=== PATIENT | male | born 1960 | race Caucasian/White ===

== ENCOUNTER 2018-07-22 13:01 | Emergency (ER) | payer BC, OTHER, SELFPAY ==
[2018-07-22 13:06] VITALS: BP 196/97; PULSE 77; RESP 20; TEMP 36.5; O2SAT 97
--- NOTE | 2018-07-22 13:11 | DI.RAD.S_ITS ---
PROCEDURE: XR CHEST 2V INDICATIONS: cough/soa/orthopnea TECHNIQUE: 2 views of the chest were acquired. COMPARISON: None. FINDINGS: Surgical changes and devices: None. Lungs and pleura: Lungs are clear. No pleural effusions or pneumothorax. Mediastinum: Mediastinal contours are normal. Heart size is normal. Bones and chest wall: No suspicious bony abnormalities. Soft tissues appear unremarkable. IMPRESSION: No acute cardiopulmonary findings. Dictated by: Helne Nicholas M.D. on 07/22/2018 at 13:22 Approved by: Helen Nicholas M.D. on 07/22/2018 at 13:45
[2018-07-22 13:35] LABS: Influenza A and B by PCR Rapid Negative (Negative)
[2018-07-22 14:23] VITALS: BP 183/90; PULSE 74; RESP 16; O2SAT 99
--- NOTE | 2018-07-22 15:00 | ED_ITS ---
HPI - URI/Sore Throat <Maria Ghosh PA-C - Last Filed: 07/22/18 21:36> General Chief Complaint: Upper Respiratory Symptoms Stated Complaint: lung congestion, wheezing and coughing Time Seen by Provider: 07/22/18 14:27 Source: patient Mode of arrival: ambulatory Limitations: no limitations History of Present Illness HPI Narrative: This 58-year-old male comes in due to worsening cough and chest congestion with some wheezing at night. He states this has worsened for the last couple of days with productive cough though he has had cough for about a month now. He states that he does not feel acutely short of breath though notices his exercise tolerance is a little less any tends to cough when he exerts himself , thinks this might be because he is throwing hay for the horses in the barn and there is dust. He denies any fever, chills, or sweats at home. He states that he can have a little ear congestion but otherwise no new sinus symptoms, no sore throat or nasal congestion. He denies any pulmonary history or history of reactive airways. He denies any new swelling or pain in his extremities. No recent travel or known exposures. he states only other new symptoms that started the last couple of days is a rash on his right ankle area that is very itchy. He states he had this once about 8 years ago and was treated with steroids. Related Data Previous Rx's Medication Instructions Recorded albuterol sulfate 2 inhalation INHALATION Q4H PRN 07/22/18 #8.5 gram triamcinolone acetonide 1 applictn TOP BID #60 gram 07/22/18 Allergies Allergy/AdvReac Type Severity Reaction Status Date / Time No Known Drug Allergies Allergy Verified 07/22/18 13:09 Review of Systems <Maria Ghosh PA-C - Last Filed: 07/22/18 21:36> Review of Systems ROS Unobtainable: All systems reviewed & are unremarkable except as noted in HPI and below PFSH <Maria Ghosh PA-C - Last Filed: 07/22/18 21:36> Medical History Elevated blood pressure reading in office without diagnosis of hypertension (Chronic) Not taking medication for chronic disease (Chronic) Surgical History Status post discectomy for herniated nucleus pulposus (Resolved) Status post rotator cuff repair (Resolved) Family History Other No pertinent family history Social History Smoking Status: Former smoker Family History Other No pertinent family history Social History Smoking Status: Former smoker Comment: approx 25 py tob, quit 2009 Exam <Maria Ghosh PA-C - Last Filed: 07/22/18 21:36> Narrative Exam Narrative: GENERAL APPEARANCE: Patient sitting comfortably, in no distress. HEAD: No sinus TTP. EYES: PERRL, EOMI. EARS: Normal auditory canals, TMS intact with dull light reflexes ORAL CAVITY: Normal oropharynx. THROAT: Clear. NECK/THYROID: Neck supple, full range of motion, no cervical lymphadenopathy. LUNGS: breath sounds are a little coarse without wheezes or crackles, occasional hoarse cough on exam HEART: RRR without murmur, nl S1, S2, no S3 or S4. EXTREMITIES: no edema or calf tenderness DERMATOLOGIC: Right lower extremity there is patchy irregular erythema with skin flaking, noted over the inferior sparrow to ankle, sparing the mid to distal foot Initial Vital Signs Initial Vital Signs: Vital Signs Temperature 97.7 F 07/22/18 13:06 Pulse Rate 77 07/22/18 13:06 Respiratory Rate 20 07/22/18 13:06 Blood Pressure 196/97 H 07/22/18 13:06 Pulse Oximetry 97 07/22/18 13:06 <Mily Frazier DO - Last Filed: 07/23/18 12:30> Initial Vital Signs Initial Vital Signs: Vital Signs Temperature 97.7 F 07/22/18 13:06 Pulse Rate 77 07/22/18 13:06 Respiratory Rate 20 07/22/18 13:06 Blood Pressure 196/97 H 07/22/18 13:06 Pulse Oximetry 97 07/22/18 13:06 Course <Maria Ghosh PA-C - Last Filed: 07/22/18 21:36> Additional Information: Patient is feeling significantly improved after nebulizer treatment. He is coughing less. He has had ongoing cough and may have some element of COPD or ongoing allergy related cough, but likely viral bronchitis and reactive airways with recent worsening cough. He will continue albuterol at home along with other supportive treatment. He agreed to return if any acutely worsening symptoms, and otherwise I have arranged follow-up with a new PCP for him next week Orders Ordered: Discontinued Medications Albuterol (Ventolin) 2.5 mg INH NOW ONE Stop: 07/22/18 15:10 Last Admin: 07/22/18 15:21 Dose: 2.5 mg Vital Signs - 8 hr 07/22/18 14:23 07/22/18 15:24 07/22/18 15:50 Pulse Rate 74 63 67 Respiratory Rate 16 16 16 Blood Pressure [Left Arm] 183/90 H 140/73 Pulse Oximetry 99 97 100 <Mily Frazier DO - Last Filed: 07/23/18 12:30> Orders Ordered: Discontinued Medications Albuterol (Ventolin) 2.5 mg INH NOW ONE Stop: 07/22/18 15:10 Last Admin: 07/22/18 15:21 Dose: 2.5 mg Vital Signs - 8 hr 07/22/18 14:23 07/22/18 15:24 07/22/18 15:50 Pulse Rate 74 63 67 Respiratory Rate 16 16 16 Blood Pressure [Left Arm] 183/90 H 140/73 Pulse Oximetry 99 97 100 MDM - URI/Sore Throat <Maria Ghosh PA-C - Last Filed: 07/22/18 21:36> Lab Data Lab Results 07/22/18 Range/Units 13:10 Influenza A & B (PCR) Negative (Negative) Imaging Data Chest x-ray: Radiologist's impression: Garret Soriano 58 M [address] [address] XRay Report Signed Patient: Garret SorianoMR#: [id number] : 9Acct:[id number] Age/Sex: 58 / MDate of Service: 07/22/18 Loc: ED Accession Number: [id number] Procedure: XR chest 2V Ordering Provider: Maria Ghosh P.A-C PROCEDURE: XR CHEST 2V INDICATIONS: cough/soa/orthopnea TECHNIQUE: 2 views of the chest were acquired. COMPARISON: None. FINDINGS: Surgical changes and devices: None. Lungs and pleura: Lungs are clear. No pleural effusions or pneumothorax. Mediastinum: Mediastinal contours are normal. Heart size is normal. Bones and chest wall: No suspicious bony abnormalities. Soft tissues appear unremarkable. IMPRESSION: No acute cardiopulmonary findings. Dictated by: Helen Nicholas M.D. on 07/22/2018 at 13:22 Approved by: Helen Nicholas M.D. on 07/22/2018 at 13:45 <Mily DO Freddie - Last Filed: 07/23/18 12:30> Lab Data Lab Results 07/22/18 Range/Units 13:10 Influenza A & B (PCR) Negative (Negative) Discharge Plan Departure Patient Disposition: Home Clinical Impression: Bronchitis, Dermatitis Reactive airway disease Qualifiers: Asthma severity: mild Asthma persistence: intermittent Asthma complication type: with acute exacerbation Qualified Code(s): J45.21 - Mild intermittent asthma with (acute) exacerbation Discharge Date/Time: 07/22/18 16:12 Interventions: ED Discharge Assessment Last Done: 07/22/18 16:11 Instructions: DI for Acute Bronchitis, DI for Reactive Airway Disease-Adult Activity Restrictions/Additional Instructions: please use the inhaler as often as needed to help with cough and wheeze. you seem to have what we call reactive airways, which is an asthma like reaction when there is a trigger such as bronchitis. You may wish to add [id number] Mucinex to help with the chest congestion, and an antihistamine such as Zyrtec once daily may be helpful as well Since you are exposed to lots of allergens. Please return as we talked about if you have any acutely worsening symptoms, i.e. worsening wheezing or breathing difficulties, or new symptoms such as high fever. you should follow-up with a primary care provider in the next week or so to make sure you are getting better and see whether you need any other testing or treatment for your cough. I have also prescribed a topical steroid for your rash that has showed up again on your right leg. Please start using that and continue the athletes foot powder in your socks/boots as well. Leave the rash open to air when you are home. I have set you up with [facility] here in [facility] for a new patient appointment on Sunday, 07/30 so that you can follow up on these problems. Please check in there at 10:00 a.m. a.m. so that you can fill out paperwork prior to your appointment Prescriptions: New triamcinolone acetonide 0.5 % ointment 1 applictn TOP BID Qty: 60 RF: 0 albuterol sulfate 90 mcg/actuation HFA aerosol inhaler 2 inhalation INHALATION Q4H PRN (Reason: cough/wheeze) Qty: 8.5 RF: 0 Referrals: Tang Travis MD [Physician] - <Mily Frazier DO - Last Filed: 07/23/18 12:30> Cosign ED Attending Cosignature Attestation: I was immediately available in the department for consultation. Documentation has been reviewed. I agree with assessment and plan.
[2018-07-22] MEDS: ALBUTEROL 2.5 MG/3 ML NEB (ADULT) INH (15:21)
[2018-07-22 15:24] VITALS: PULSE 63; RESP 16; O2SAT 97
[2018-07-22 15:50] VITALS: BP 140/73; PULSE 67; RESP 16; O2SAT 100
== END 2018-07-22 16:12 | disposition home or self-care (01) ==
PROVIDERS: Emergency Provider Internal Medicine
DX: J45.21 Mild intermittent asthma with (acute) exacerbation (principal)
CPT/HCPCS: 71046; 87400; 94640; 99282; 99284; J7613

== ENCOUNTER → 2018-08-14 15:21 | Outpatient (CLI) | payer BC, OTHER, SELFPAY ==
--- NOTE | 2018-08-14 | DI.CT.S_ITS ---
PROCEDURE: CT CHEST WO CON INDICATIONS: CHRONIC COUGH TECHNIQUE: Noncontrast 5 mm thick sections acquired from the pulmonary apices to the posterior costophrenic angles. 7 mm thick coronal and sagittal MIP reformats were then acquired. For radiation dose reduction, the following was used: automated exposure control, adjustment of mA and/or kV according to patient size. COMPARISON: [facility], CR, XR CHEST 2V, 07/22/2018, 13:12. FINDINGS: Image quality: Excellent. Lungs and pleura: There is a 4 mm nodular density in the right middle lobe medially (series 3 image 30; series 4 image 15 and series 5 image 27). Mild right basilar scar/atelectasis. No acute air space opacities. No pleural effusions or pneumothorax. Central and peripheral airways are patent and normal in caliber. Mediastinum: Heart size is normal. No pericardial effusion. No mediastinal adenopathy by size criteria. Thoracic aorta and central pulmonary arteries are normal in size. Esophagus is normal in caliber. No hiatal hernia. Bones and chest wall: No suspicious bony lesions. No vertebral body compression fractures. No axillary or supraclavicular adenopathy by size criteria. Thyroid gland is normal. Abdomen: Visualized upper abdominal solid organs and bowel loops appear normal in the absence of contrast. IMPRESSION: 1. A 4 mm nodular density in the right middle lobe. Please see enclosed followup recommendation. 2. Mild right basilar scar/atelectasis. Fleischner Society criteria for SOLID lung nodule followup. Nodule size (mm)Low-risk patientHigh-risk patient?4No follow-up neededFollow-up at 12 mo; if no change, no further follow-up>[id number] CT at 12 mo; if no change, no further follow-up needed.Initial follow-up CT at 6-12 mo, then 18-24 mo if no change. >6-8Initial follow-up CT at 6-12 mo, then 18-24 mo if no change. Initial follow-up CT at 3-6 mo, then 9-12 mo and 24 mo if no change. >8Follow-up CT at 3, 9, 24 mo. Or PET and/or biopsy.Same as for low-risk pts. Dictated by: Chrissie Burnham M.D. on 08/14/2018 at 16:16 Approved by: Chrissie Burnham M.D. on 08/14/2018 at 17:31
[2018-08-14 16:42] LABS: Alanine Aminotransferase 37 IU/L (21-72); Albumin 4.8 g/dL (3.5-5.0); Albumin Globulin Ratio 1.5 (1.0-2.8); Alkaline Phosphatase 69 U/L (38-126); Aspartate Aminotransferase 35 IU/L (17-59); BUN Creatinine Ratio 15.6 (6-22); Bilirubin Total 0.5 mg/dL (0.2-1.3); Blood Urea Nitrogen 14 mg/dL (9-20); Calcium 9.5 mg/dL (8.4-10.2); Carbon Dioxide 27 mmol/L (22-32); Chloride 102 mmol/L (98-107); Cholesterol 244 mg/dL (140-199); Estimated Glomerular Filt Rate > 60.0 mL/min (>60); Globulin 3.3 g/dL (1.7-4.1); Glucose 140 mg/dL (70-100); HDL Cholesterol 41 mg/dL (40-60); HEMOLYSIS < 15 (0-50); LDL Cholesterol Calculated 151 mg/dL (<100); Sodium 141 mmol/L (137-145); Total Protein 8.1 g/dL (6.3-8.2); Triglycerides 261 mg/dL (35-150)
== END ==
PROVIDERS: PCP Internal Medicine; Visit Provider Internal Medicine
DX: R05 Cough (principal); R91.1 Solitary pulmonary nodule; J98.11 Atelectasis; I10 Essential (primary) hypertension; E78.5 Hyperlipidemia, unspecified
CPT/HCPCS: 36415; 71250; 80053; 80061

== ENCOUNTER → 2018-10-02 16:21 | Outpatient (CLI) | payer BC, OTHER, SELFPAY ==
[2018-10-02 17:19] LABS: Hemoglobin A1C% w Est Avg Glu 5.5 % (4.0-6.0)
--- NOTE | 2018-10-08 15:15 | PM.PFT.1 ---
Pulmonary Function Test Referral & Results Date Patient Seen: 10/02/18 Requesting provider: Tang Travis Results: The spirometry demonstrates an FVC of 3.42 L which is 82% of predicted. The FEV1 was measured at 2.51 L which is 81% of predicted. The FEV1/FVC ratio was 70 for which is 97% of predicted. Following the administration of bronchodilator there was at 32% improvement in FEF 25-75%. Lung volumes show an SVC of 3.69 L which is 88% of predicted. The diffusing capacity was measured at 26.75 which is 99% of predicted. The maximum voluntary ventilation was normal Interpretation: This study demonstrates perhaps very mild obstructive lung disease based on slight reduction in FEV1. There was a 32% improvement in small airway flow based on improvement in FEF 25-75% following bronchodilator administration There is minimal reduction in lung volumes suggesting perhaps very mild restrictive lung disease Clinical correlation suggested
== END ==
PROVIDERS: PCP Internal Medicine; Visit Provider Internal Medicine
DX: R05 Cough (principal); R06.02 Shortness of breath; R73.9 Hyperglycemia, unspecified
CPT/HCPCS: 36415; 83036; 94060; 94726; 94729

== ENCOUNTER → 2018-11-30 11:27 | Outpatient (CLI) | payer BC, OTHER, SELFPAY ==
[2018-11-30 13:17] LABS: Alanine Aminotransferase 25 IU/L (21-72); Albumin 4.3 g/dL (3.5-5.0); Albumin Globulin Ratio 1.4 (1.0-2.8); Alkaline Phosphatase 70 U/L (38-126); Aspartate Aminotransferase 31 IU/L (17-59); BUN Creatinine Ratio 12.2 (6-22); Bilirubin Total 0.4 mg/dL (0.2-1.3); Blood Urea Nitrogen 11 mg/dL (9-20); Carbon Dioxide 27 mmol/L (22-32); Chloride 107 mmol/L (98-107); Cholesterol 207 mg/dL (140-199); Estimated Glomerular Filt Rate > 60.0 mL/min (>60); Globulin 3.1 g/dL (1.7-4.1); Glucose 105 mg/dL (70-100); HDL Cholesterol 35 mg/dL (40-60); HEMOLYSIS < 15 (0-50); LDL Cholesterol Calculated 126 mg/dL (<100); Potassium 4.1 mmol/L (3.4-5.1); Sodium 141 mmol/L (137-145); Total Protein 7.4 g/dL (6.3-8.2); Triglycerides 231 mg/dL (35-150)
[2018-11-30 13:18] LABS: Hemoglobin A1C% w Est Avg Glu 5.3 % (4.0-6.0)
== END ==
PROVIDERS: PCP Internal Medicine; Visit Provider Internal Medicine
DX: I10 Essential (primary) hypertension (principal); E78.5 Hyperlipidemia, unspecified; R73.9 Hyperglycemia, unspecified
CPT/HCPCS: 36415; 80053; 80061; 83036

== ENCOUNTER → 2019-02-24 15:21 | Outpatient (CLI) | payer BC, OTHER, SELFPAY ==
--- NOTE | 2019-02-24 | DI.CT.S_ITS ---
PROCEDURE: CT CHEST WO CON INDICATIONS: LUNG NODULE TECHNIQUE: Noncontrast 2.0-2.5 mm thick sections acquired from the pulmonary apices to the posterior costophrenic angles. 7 mm thick axial MIP and 5 mm coronal and sagittal reformats were then acquired. A low radiation dose technique was utilized. COMPARISON: [facility], CT, CT CHEST WO CON, 08/14/2018, 15:44. FINDINGS: Image quality: Diagnostic, given the low radiation dose technique. Lungs and pleura: There is a stable, triangular shaped pulmonary radiopacity which extends to the medial right middle lobe pleural surface (series 6, image 22 and series 5, image 21. This finding is unchanged when compared with the prior CT dated 08/14/18 when accounting for variation in slice thickness. No new pulmonary nodules. No acute air space opacities. No pleural effusion or pneumothorax. Mediastinum: Heart size is normal. No pericardial effusion. No mediastinal adenopathy by size criteria. Thoracic aorta and central pulmonary arteries are normal in size. Esophagus is normal in caliber. No hiatal hernia. Bones and chest wall: No suspicious bony lesions. No vertebral body compression fractures. No axillary or supraclavicular adenopathy by size criteria. Thyroid gland is unremarkable. Abdomen: Visualized upper abdomen solid organs and bowel loops appear normal in the absence of contrast. IMPRESSION: 1. Stable appearance of a triangular shaped, pleural-based pulmonary radiopacity within the right middle lobe when compared with the CT dated 08/14/18. Followup CT in 6-12 months recommended to ensure stability. 2. No new pulmonary nodules or acute air space opacities. Fleischner Society criteria for SOLID lung nodule followup. Nodule size (mm)Low-risk patientHigh-risk patient<6 (single or multiple)No routine followup.Optional CT at 12 months. 6-8 (single or multiple)CT at 6-12 months, then optional CT at 18-24 mo.CT at 6-12 months, then CT at 18-24 months. >8 (single)CT at 3 months, PET-CT, or biopsy. Same as for low-risk pts. >8 (multiple)CT at 3-6 months, then optional CT at 18-24 mo.CT at 3-6 months, then CT at 18-24 months. Fleischner Society criteria for SUB-SOLID lung nodule followup. Solitary pure ground-glass nodules<6 mm (ground glass or part solid)No followup needed. 6 mm or larger (ground glass)CT at 6-12 months to confirm persistence, then CT every 2 years until 5 years.6 mm or larger (part solid)CT at 3-6 months to confirm persistence, then annual CT until 5 years if unchanged and solid component remains <6 mm. Multiple sub-solid nodules<6 mmCT at 3-6 months, then CT consider at 2 & 4 years for high risk patients. [address] at 3-6 months. Subsequent management based on most suspicious lesions. Recommendations do not apply to lung cancer screening, patients with immunosuppression, or patients with known primary cancer. Dictated by: Helen Nicholas M.D. on 02/24/2019 at 17:09 Approved by: Helen Nicholas M.D. on 02/24/2019 at 17:15
== END ==
PROVIDERS: PCP Internal Medicine; Visit Provider Internal Medicine
DX: R91.1 Solitary pulmonary nodule (principal)
CPT/HCPCS: 71250

== ENCOUNTER → 2019-07-14 15:26 | Outpatient (CLI) | payer BC, OTHER, SELFPAY ==
[2019-07-14 18:12] LABS: Alanine Aminotransferase 22 IU/L (<50); Albumin 4.7 g/dL (3.5-5.0); Albumin Globulin Ratio 1.5 (1.0-2.8); Alkaline Phosphatase 72 U/L (38-126); Aspartate Aminotransferase 31 IU/L (17-59); BUN Creatinine Ratio 16.7 (6-22); Bilirubin Total 0.3 mg/dL (0.2-1.3); Blood Urea Nitrogen 15 mg/dL (9-20); Calcium 10.1 mg/dL (8.4-10.2); Carbon Dioxide 28 mmol/L (22-32); Chloride 103 mmol/L (98-107); Estimated Glomerular Filt Rate > 60.0 mL/min (>60); Globulin 3.2 g/dL (1.7-4.1); Glucose 84 mg/dL (80-110); HDL Cholesterol 37 mg/dL (40-60); HEMOLYSIS < 15 (0-50); Potassium 4.7 mmol/L (3.4-5.1); Sodium 141 mmol/L (137-145); Total Protein 7.9 g/dL (6.3-8.2); Triglycerides 347 mg/dL (35-150)
[2019-07-14 18:13] LABS: Cholesterol 255 mg/dL (140-199); LDL Cholesterol Calculated 149 mg/dL (<100)
--- NOTE | 2019-08-12 11:35 | ONC.MSW ---
Description: Initial Referral Navigation Activity: Reviewed the referral for acuity, medical status and immediate needs. Forwarded to scheduling for next available initial consult visit.
== END ==
PROVIDERS: PCP Internal Medicine; Referring Provider Internal Medicine; Visit Provider Internal Medicine
DX: I10 Essential (primary) hypertension (principal); E78.5 Hyperlipidemia, unspecified
CPT/HCPCS: 36415; 80053; 80061

== ENCOUNTER → 2019-10-06 13:00 | Oncology outpatient (ONC) | payer BC, OTHER, SELFPAY ==
[2019-09-04 14:52] VITALS: BP 146/85; PULSE 66; RESP 18; TEMP 36.8; O2SAT 98
--- NOTE | 2019-09-04 15:06 | P.CONONC_ITS ---
History of Present Illness - Data of Consult Patient: new to practice Consult date: 09/04/19 Requesting Physician: Tang Travis MD Primary Care Provider: Tang Travis MD - Consult Narrative Reason for consult: Positive family history of Factor V Leiden Narrative: Garret Soriano is a 59 year old male. He was referred here for test of factor V Leiden due to strong family history. His sister and mother were diagnosed FVL. His sister maybe has history of DVT. His mother had stroke. His father negative for FVL. Patient himself has no symptoms. His medical comorbidities include high blood pressure. He has ruptured disk and had sciatic nerve. He had surgery of his back and since then, he has numbness of left foot, heal and 4/5 toes. Patient reports pain?: No Home Medications and Allergies Home Medications Medication Instructions Recorded Confirmed Type albuterol sulfate 2 inhalation INHALATION Q4H PRN 07/22/18 09/04/19 Rx #8.5 gram lisinopril 10 mg PO DAILY 09/04/19 09/04/19 History Allergies Allergy/AdvReac Type Severity Reaction Status Date / Time No Known Drug Allergies Allergy Verified 07/22/18 13:09 Medical History - Medical, Surgical, Family History Medical History: Medical History (Last Updated 07/22/18 @ 21:30 by Maria Ghosh PA-C) Elevated blood pressure reading in office without diagnosis of hypertension Not taking medication for chronic disease Surgical History: Surgical History (Last Updated 07/22/18 @ 15:13 by Maria Ghosh PA-C) Status post discectomy for herniated nucleus pulposus Status post rotator cuff repair Family History: Family History (Last Updated 09/04/19 @ 15:19 by Neto Mcintosh MD) Mother Factor V Leiden Sister Factor V Leiden Father Hypertension Congestive heart failure Lung cancer - Social History Smoking Status: Former smoker Smoking packs per day: 0.5 Years smoked: 20 Substance Use Type: does not use Alcohol Intake: never Exam Vital signs: Last Vital Signs Temp 98.3 F 09/04/19 14:52 Pulse 66 09/04/19 14:52 Resp 18 09/04/19 14:52 BP 146/85 H 09/04/19 14:52 Pulse Ox 98 09/04/19 14:52 Narrative: ECOG 0 Vitals above reviewed Constitutional: WDWN, well nourished, and well groomed. NAD. Pleasant and coop erative. HEENT: NCAT, EOMI, PERRLA, anicteric sclera. Neck: Supple and symmetrical. No palpable thyromegaly or lymphadenopathy. No palpable masses. Respiratory: No use of accessory muscles, CTAB, no wheezes. Cardiovascular: RRR, S1 and S2 normal, no M/G/R. No edema of lower extremities. Abdomen: Soft, NTND, no palpable hepatosplenomegaly, no hernia. Lymphatic: no palpable palpable lymph nodes in the neck, axillae, or groins. Musculoskeletal: normal gait and station Skin: no rashes, lesions, or ulcers, no induration, or sub cutaneous nodules. Neurological: AOx3, CN II-XII grossly intact. No focal motor or sensory deficit. Psychiatric: Normal judgment and insight, normal memory (recent and remote), normal mood and affect. Results - Labs None for review today Assessment and Plan (1) Family history of factor V Leiden mutation Overview: 59-year-old gentleman was referred here due to family history of Factor 5 Leiden (sister and mother). Assessment: I explained to the patient that most likely he probably will be positive. However he does not have any clinical history of venous thromboembolism. So it may or may not change what we are going to do. Patient voiced understanding. Plan: CBC, CMP, Factor V Leiden RTC in 4 weeks
[2019-09-04 16:27] LABS: Add Manual Diff / Slide Review NO; Basophils Absolute Auto 0 /uL (0-100); Basophils Percent Auto 0.7 % (0-2); Eosinophils Absolute Auto 200 /uL (0-450); Eosinophils Percent Auto 2.4 % (2-4); Hematocrit 43.9 % (41-53); Lymphocytes Absolute Auto 2300 /uL (1100-4500); Lymphocytes Percent Auto 34.3 % (25-40); Mean Corpuscular HGB Conc 34.2 % (30-36); Mean Corpuscular Volume 93.6 fL (80-100); Monocytes Absolute Auto 500 /uL (0-900); Monocytes Percent Auto 7.4 % (3-14); Neutrophils Absolute Auto 3700 /uL (1500-7000); Neutrophils Percent Auto 55.2 % (50-75); Platelet Count 260 X10^3/uL (150-400); Red Blood Cell Count 4.69 X10^6/uL (4.5-5.9); Red Cell Distribution Width 12.5 % (11.6-14.8); White Blood Cell Count 6.7 X10^3/uL (4.5-11.0)
[2019-09-04 16:41] LABS: Alanine Aminotransferase 31 IU/L (<50); Albumin 4.7 g/dL (3.5-5.0); Albumin Globulin Ratio 1.4 (1.0-2.8); Alkaline Phosphatase 73 U/L (38-126); Aspartate Aminotransferase 46 IU/L (17-59); BUN Creatinine Ratio 12.8 (6-22); Bilirubin Total 0.6 mg/dL (0.2-1.3); Blood Urea Nitrogen 11 mg/dL (9-20); Calcium 9.6 mg/dL (8.4-10.2); Carbon Dioxide 29 mmol/L (22-32); Chloride 102 mmol/L (98-107); Estimated Glomerular Filt Rate > 60.0 mL/min (>60); Globulin 3.4 g/dL (1.7-4.1); Glucose 101 mg/dL (80-110); HEMOLYSIS < 15 (0-50); Potassium 4.2 mmol/L (3.4-5.1); Sodium 138 mmol/L (137-145); Total Protein 8.1 g/dL (6.3-8.2)
--- NOTE | 2019-10-06 12:43 | ONC.PN ---
PN -Subjective Interval history: Garret Soriano is a 59 year old male. He was referred here for test of factor V Leiden due to strong family history. His sister and mother were diagnosed FVL. His sister maybe has history of DVT. His mother had stroke. His father negative for FVL. Patient himself has no symptoms. His medical comorbidities include high blood pressure. He has ruptured disk and had sciatic nerve. He had surgery of his back and since then, he has numbness of left foot, heal and 4/5 toes. Patient presents here today for follow-up of the lab test results. Clinically patient reports no new signs or symptoms. - Additional ROS All systems PM: reviewed and no additional remarkable complaints except as stated Home Medications and Allergies Home Medications Medication Instructions Recorded Confirmed Type albuterol sulfate 2 inhalation INHALATION Q4H PRN 07/22/18 09/04/19 Rx #8.5 gram lisinopril 10 mg PO DAILY 09/04/19 09/04/19 History aspirin [Aspirin Low Dose] 81 mg PO DAILY 10/06/19 10/06/19 History Allergies Allergy/AdvReac Type Severity Reaction Status Date / Time No Known Drug Allergies Allergy Verified 07/22/18 13:09 Exam Vital signs: 10/06/19 13:07 Last Vital Signs Temp 98.3 F 09/04/19 14:52 Pulse 60 10/06/19 12:58 Resp 16 10/06/19 12:58 BP 145/86 H 10/06/19 12:58 Pulse Ox 99 10/06/19 12:58 Narrative: ECOG 0 Vitals above reviewed Constitutional: WDWN, well nourished, and well groomed. NAD. Pleasant and cooperative. HEENT: NCAT, EOMI, PERRLA, anicteric sclera. Respiratory: No use of accessory muscles Musculoskeletal: normal gait and station Neurological: AOx3, CN II-XII grossly intact. No focal motor or sensory deficit. Psychiatric: Normal judgment and insight, normal memory (recent and remote), normal mood and affect. Results - Labs Laboratory Last Values WBC 6.7 X10^3/uL (4.5-11.0) 09/04/19 16:14 RBC 4.69 X10^6/uL (4.5-5.9) 09/04/19 16:14 Hgb 15.0 g/dL (13.5-17.5) 09/04/19 16:14 Hct 43.9 % (41-53) 09/04/19 16:14 MCV 93.6 fL (80-100) 09/04/19 16:14 MCH 32.0 PG (26-34) 09/04/19 16:14 MCHC 34.2 % (30-36) 09/04/19 16:14 RDW 12.5 % (11.6-14.8) 09/04/19 16:14 Plt Count 260 X10^3/uL (150-400) 09/04/19 16:14 Neut % (Auto) 55.2 % (50-75) 09/04/19 16:14 Lymph % (Auto) 34.3 % (25-40) 09/04/19 16:14 [place] % (Auto) 7.4 % (3-14) 09/04/19 16:14 Eos % (Auto) 2.4 % (2-4) 09/04/19 16:14 Baso % (Auto) 0.7 % (0-2) 09/04/19 16:14 Neut # (Auto) 3700 /uL (8707-0144) 09/04/19 16:14 Lymph # (Auto) 2300 /uL (9538-7673) 09/04/19 16:14 [place] # (Auto) 500 /uL (0-900) 09/04/19 16:14 Eos # (Auto) 200 /uL (0-450) 09/04/19 16:14 Baso # (Auto) 0 /uL (0-100) 09/04/19 16:14 Factor V Leiden Interp Comment (.) 09/04/19 16:14 Sodium 138 mmol/L (137-145) 09/04/19 16:14 Potassium 4.2 mmol/L (3.4-5.1) 09/04/19 16:14 Chloride 102 mmol/L (98-107) 09/04/19 16:14 Carbon Dioxide 29 mmol/L (22-32) 09/04/19 16:14 BUN 11 mg/dL (9-20) 09/04/19 16:14 Creatinine 0.86 mg/dL (0.66-1.25) 09/04/19 16:14 Estimated GFR > 60.0 mL/min (>60) 09/04/19 16:14 BUN/Creatinine Ratio 12.8 (6-22) 09/04/19 16:14 Glucose 101 mg/dL (80-110) 09/04/19 16:14 Calcium 9.6 mg/dL (8.4-10.2) 09/04/19 16:14 Total Bilirubin 0.6 mg/dL (0.2-1.3) 09/04/19 16:14 AST 46 IU/L (17-59) 09/04/19 16:14 ALT 31 IU/L (<50) 09/04/19 16:14 Alkaline Phosphatase 73 U/L (38-126) 09/04/19 16:14 Total Protein 8.1 g/dL (6.3-8.2) 09/04/19 16:14 Albumin 4.7 g/dL (3.5-5.0) 09/04/19 16:14 Globulin 3.4 g/dL (1.7-4.1) 09/04/19 16:14 Albumin/Globulin Ratio 1.4 (1.0-2.8) 09/04/19 16:14 Assessment and Plan (1) Family history of factor V Leiden mutation Overview: 59-year-old gentleman was referred here due to family history of Factor 5 Leiden (sister and mother). Assessment: I reviewed the lab results with the patient. CBC and CMP are normal. The genetic testing for Factor 5 Leiden was negative. I talked with him that it means he did not inherit the abnormal gene from his mother. His lab results from previous test only showed hypercholesterolemia. I recommend the patient continue follow-up with his primary care provider Dr. Travis. Patient voiced understanding. I will follow up on an as-needed basis. I Plan: Follow up with his PCP Dr. Travis. Call me for follow up visit prn.
[2019-10-06 12:58] VITALS: BP 145/86; PULSE 60; RESP 16; O2SAT 99
== END ==
PROVIDERS: PCP Internal Medicine; Referring Provider Internal Medicine; Visit Provider Internal Medicine Hematology & Oncology
DX: Z13.0 Encounter for screening for diseases of the blood and blood-forming organs and certain disorders involving the immune mechanism (principal); Z83.2 Family history of diseases of the blood and blood-forming organs and certain disorders involving the immune mechanism; I10 Essential (primary) hypertension; E78.00 Pure hypercholesterolemia, unspecified; Z87.891 Personal history of nicotine dependence
CPT/HCPCS: 36415; 80053; 81241; 85025; 99203; 99213

== ENCOUNTER → 2020-12-24 09:40 | Outpatient (CLI) | payer BC, OTHER, SELFPAY ==
[2020-12-24 10:21] LABS: COVID19 -Nasal RAPID Negative (Negative)
== END ==
PROVIDERS: PCP Internal Medicine; Visit Provider Physician Assistant
DX: R05 Cough (principal); Z20.822 Contact with and (suspected) exposure to COVID-19; R09.81 Nasal congestion
CPT/HCPCS: 87635

== ENCOUNTER → 2021-10-18 15:59 | Outpatient (CLI) | payer BC, OTHER, SELFPAY ==
[2021-10-18 17:25] LABS: Add Manual Diff / Slide Review NO; Basophils Absolute Auto 0 /uL (0-100); Basophils Percent Auto 0.3 % (0-2); Eosinophils Absolute Auto 100 /uL (0-450); Eosinophils Percent Auto 1.5 % (2-4); Hematocrit 39.8 % (41-53); Hemoglobin 13.9 g/dL (13.5-17.5); Lymphocytes Absolute Auto 2300 /uL (1100-4500); Lymphocytes Percent Auto 31.5 % (25-40); Mean Corpuscular HGB Conc 34.9 % (30-36); Mean Corpuscular Hemoglobin 32.1 PG (26-34); Monocytes Absolute Auto 700 /uL (0-900); Monocytes Percent Auto 9.6 % (3-14); Neutrophils Absolute Auto 4100 /uL (1500-7000); Neutrophils Percent Auto 57.1 % (50-75); Platelet Count 240 X10^3/uL (150-400); Red Blood Cell Count 4.32 X10^6/uL (4.5-5.9); Red Cell Distribution Width 12.5 % (11.6-14.8); White Blood Cell Count 7.1 X10^3/uL (4.5-11.0)
[2021-10-18 17:39] LABS: Hemoglobin A1C% w Est Avg Glu 5.6 % (4.0-6.0)
[2021-10-18 17:56] LABS: Alanine Aminotransferase 25 IU/L (<50); Albumin 4.5 g/dL (3.5-5.0); Albumin Globulin Ratio 1.4 (1.0-2.8); Alkaline Phosphatase 74 U/L (38-126); Aspartate Aminotransferase 40 IU/L (17-59); BUN Creatinine Ratio 11.9 (6-22); Bilirubin Total 0.5 mg/dL (0.2-1.3); Blood Urea Nitrogen 10 mg/dL (9-20); Carbon Dioxide 27 mmol/L (22-32); Chloride 105 mmol/L (98-107); Cholesterol 226 mg/dL (140-199); Estimated Glomerular Filt Rate > 60 mL/min (>60); Globulin 3.3 g/dL (1.7-4.1); Glucose 105 mg/dL (80-110); HDL Cholesterol 33 mg/dL (40-60); HEMOLYSIS < 15 (0-50); LDL Cholesterol Calculated 136 mg/dL (<100); Potassium 3.9 mmol/L (3.4-5.1); Sodium 141 mmol/L (137-145); Total Protein 7.8 g/dL (6.3-8.2); Triglycerides 285 mg/dL (35-150)
[2021-10-18 18:25] LABS: Thyroid Stimulating Hormone 1.03 uIU/mL (0.47-4.68)
== END ==
PROVIDERS: PCP Family Medicine; Referring Provider Family Medicine; Visit Provider Family Medicine
DX: Z00.00 Encounter for general adult medical examination without abnormal findings (principal)
CPT/HCPCS: 36415; 80053; 80061; 83036; 84443; 85025

== ENCOUNTER 2024-02-19 14:05 | Day surgery (SDC) | payer OTHER, SELFPAY ==
[2024-02-15 07:06] VITALS: BMI 36.6
--- NOTE | 2024-02-18 18:30 | PM.PREOP ---
Pre-operative Note Interval Note History & Physical reviewed/Exam performed by Physician: Yes Changes to H&P: No
[2024-02-19] VITALS (7 sets, daily range): BP systolic 122–176; BP diastolic 73–93; PULSE 66–82; RESP 12–20; TEMP 36.6–37; O2SAT 94–97; BMI 36.1
[2024-02-19] MEDS: LACTATED RINGERS 1,000 ML 21 ML IV (14:53)
--- NOTE | 2024-02-19 15:03 | PM.OP.1 ---
Operative Date/Time/Diagnoses Date of procedure: 02/19/24 Time of procedure: 15:03 Pre-op diagnosis: umbilical hernia Post-op diagnosis: same Procedure & Clinicians Procedure: open umbilical hernia Same procedure as scheduled: Yes Indications: symptomatic reducible umbilical hernia Surgeon: Salvador Stringer Anesthesia Type: General Operative Notes Findings: 3 cm fascial defect Specimen(s): none sent Estimated Blood Loss (mL): 10 Procedure in detail: Patient was brought to the operating room placed supine on the table. Bilateral lower extremity compression devices were applied. General anesthesia was induced and they were intubated with an endotracheal tube. They received 2 g of Ancef prior to skin incision. They were prepped and draped in sterile fashion. A time-out was performed. A curvilinear incision was made inferior to the umbilicus. The subcutaneous tissues were divided. The umbilical hernia was identified and the hernia sac was dissected off the umbilical skin and circumferentially off of the fascia defect. The hernia sac was sharply opened and contained viable omentum. The omentum was reduced back into the abdomen. Using blunt dissection I carefully carefully freed the hernia sac from beneath the fascia defect in order to accomodate the mesh. The fascia defect was 3.0 cm in maximal diameter. A Bard Ventralex ST hernia patch 8 cm was inserted beneath the fascia defect and above the peritoneum in a sublay position. The mesh was anchored in multiple locations using Ethibond suture to the fascia and the fascial defect was closed over the mesh. The umbilical skin was tacked to the subcutaneous tissues and then the remainder of the subcutaneous tissues were reapproximated using 3 0 Vicry,l skin closed with 4 0 Monocryl followed by the application of Dermabond and Steri-Strips. Sponge instrument count at the end of the operation was correct. Patient tolerated procedure well was extubated and transferred to postoperative care unit in stable condition. Complications: none Post-operative Condition: stable Disposition: same day surgery
[2024-02-19] MEDS: CEFAZOLIN 2 GM/100 ML PREMIX 100 ML IV (15:29)
--- NOTE | 2024-02-19 15:35 | SUR.OPER ---
Supine on padded OR bed, head on pillow, arms secured on padded arm boards at <90 degrees abduction, legs uncrossed, safety belt at thigh, tape over blanket over lower legs.
[2024-02-19] MEDS: BUPIVACAINE 0.25% (PF) VIAL 30 ML INJ (15:42)
[2024-02-19] MEDS: ACETAMINOPHEN 325 MG TABLET 650 MG PO (16:35)
[2024-02-19] MEDS: OXYCODONE IR 5 MG TABLET PO ×2 (16:49→17:11)
== END 2024-02-19 17:20 | disposition home or self-care (01) ==
PROVIDERS: PCP Family Medicine; Referring Provider Surgery; Visit Provider Surgery
PROC: (CPT 49593; principal; 2024-02-19 15:45)
DX: K42.9 Umbilical hernia without obstruction or gangrene (principal)
CPT/HCPCS: 49593; J0690; J1100; J1885; J2250; J2405; J2704; J3010; J3490